=== PATIENT | male | born 1930 | race Caucasian/White ===

== ENCOUNTER 2021-05-21 06:32 | Inpatient (IN) | payer MEDICARE, OTHER ==
[2021-05-19 12:02] LABS: BASOPHILS # (AUTO) 0.1 (0.0-0.1); BASOPHILS % 0.6 % (0.0-1.0); EOSINOPHILS # (AUTO) 0.1 (0.0-0.4); EOSINOPHILS % 0.6 % (0.0-6.0); HEMATOCRIT 47.4 % (38.2-49.6); HEMOGLOBIN 15.5 g/dL (14.0-18.0); LYMPHOCYTES # (AUTO) 3.7 (1.0-3.2); LYMPHOCYTES % 27.3 % (18.0-39.1); MEAN CORPUSCULAR HEMOGLOBIN 32.5 pg (28-32); MEAN CORPUSCULAR HGB CONC 32.7 g/dL (31-35); MEAN CORPUSCULAR VOLUME 99.4 fL (81-99); MONOCYTES # (AUTO) 1.7 (0.2-0.8); MONOCYTES % 12.3 % (4.4-11.3); NEUTROPHILS # (AUTO) 7.9 (2.1-6.9); PLATELET COUNT 268 x10e3/uL (140-360); RED BLOOD COUNT 4.77 x10e6/uL (4.3-5.7); RED CELL DISTRIBUTION WIDTH 13.8 % (11.7-14.4)
[2021-05-19 12:18] LABS: ANION GAP 11.7 mmol/L (8-16); CALCIUM 9.2 mg/dL (8.4-10.2); CREATININE, SERUM 1.08 mg/dL (0.72-1.25); POTASSIUM 4.7 mmol/L (3.5-5.1)
[~2021-05-21] VITALS: Ht 172.7 cm; Wt 96.6 kg
[~2021-05-21 06:32] MED LIST: BACTRIM 400-801 EACH PO; FINASTERIDE5 MG PO; LEVOFLOXACIN250 MG PO; LEVOTHYROXINE50 MCG PO; PROPRANOLOL HCL40 MG PO
[2021-05-21] MEDS ORDERED: SODIUM CHLORIDE 0.9% 1000ML 1,000 ML ONE (07:12)
[2021-05-21] MEDS ORDERED: LEVOFLOXACIN 500MG/D5W 100ML 100 ML IV ONE (07:32)
[2021-05-21] MEDS ORDERED: GENTAMICIN 80MG/NS 100 ML 200 ML IV ONE (07:33)
[2021-05-21] MEDS ORDERED: B&O 60MG R/S 60 MG SUPP PR ONE (08:16)
[2021-05-21] MEDS ORDERED: IOPAMIDOL 300MG/ML 50ML INFUS..BTL IV ONE (08:16)
[2021-05-21] MEDS ORDERED: NEOSTIGMINE 1 MG/ML 10ML VIAL ONE (08:16)
[2021-05-21] MEDS ORDERED: BUPIVACAINE HCL 0.5% INJ 30 ML VIAL INJ ONE (08:16)
[2021-05-21] MEDS ORDERED: DIPHENHYDRAMINE HCL 25 MG CAP PO PRN ×2 (11:45→15:15)
[2021-05-21] MEDS ORDERED: ONDANSETRON HCL INJ 2MG/ML 2ML 2 MG/ML VIAL IV PRN ×2 (11:45→15:15)
[2021-05-21] MEDS ORDERED: D5.45%NS/KCL 20MEQ 1,000 ML IV SCH (11:45)
[2021-05-21 12:04] LABS: BASOPHILS # (AUTO) 0.1 (0.0-0.1); BASOPHILS % 0.7 % (0.0-1.0); EOSINOPHILS % 0.4 % (0.0-6.0); HEMATOCRIT 47.8 % (38.2-49.6); HEMOGLOBIN 15.6 g/dL (14.0-18.0); LYMPHOCYTES # (AUTO) 1.8 (1.0-3.2); LYMPHOCYTES % 21.4 % (18.0-39.1); MEAN CORPUSCULAR HEMOGLOBIN 32.6 pg (28-32); MEAN CORPUSCULAR HGB CONC 32.6 g/dL (31-35); MONOCYTES # (AUTO) 0.2 (0.2-0.8); MONOCYTES % 2.6 % (4.4-11.3); NEUTROPHILS # (AUTO) 6.3 (2.1-6.9); NEUTROPHILS % 72.8 % (38.7-80.0); PLATELET COUNT 251 x10e3/uL (140-360); RED BLOOD COUNT 4.78 x10e6/uL (4.3-5.7); RED CELL DISTRIBUTION WIDTH 13.8 % (11.7-14.4)
[2021-05-21 12:22] LABS: ANION GAP 12.1 mmol/L (8-16); CALCIUM 8.6 mg/dL (8.4-10.2); CREATININE, SERUM 0.96 mg/dL (0.72-1.25); POTASSIUM 5.1 mmol/L (3.5-5.1)
[2021-05-21 12:54] VITALS: BP 126/75
[2021-05-21] MEDS: PHENAZOPYRIDINE HCL 100 MG TAB PO PRN ×2 (14:23→21:35)
[2021-05-21 14:32] VITALS: BP 126/73
[2021-05-21] MEDS ORDERED: ACETAMINOPHEN 325 MG TAB PO PRN (15:15)
[2021-05-21] MEDS ORDERED: LIDOCAINE 4% PATCH TP PRN (15:15)
[2021-05-21] MEDS ORDERED: PROPRANOLOL HCL 40 MG TAB PO SCH (15:15)
[2021-05-21] MEDS ORDERED: BENZONATATE 100 MG CAP PO PRN (15:15)
[2021-05-21] MEDS ORDERED: POTASSIUM CHLORIDE 20 MEQ TAB CR PO PRN (15:15)
[2021-05-21] MEDS ORDERED: DEXTROSE 50% SYRINGE 50 ML IV PRN (15:15)
[2021-05-21] MEDS ORDERED: HYDRALAZINE HCL 20 MG/ML VIAL IV PRN (15:15)
[2021-05-21] MEDS ORDERED: DOCUSATE SODIUM 100 MG CAP PO PRN (15:15)
[2021-05-21] MEDS ORDERED: ALBUTEROL/IPRATROPIUM 3 ML NEB NEB PRN (15:15)
[2021-05-21 16:33] VITALS: BP 133/80
[2021-05-21] MEDS ORDERED: DOCUSATE SODIUM 100 MG CAP PO SCH (17:00)
[2021-05-21] MEDS ORDERED: SEVOFLURANE INHAL SOLN 250 ML PEN BTL ONE (17:32)
[2021-05-21] MEDS ORDERED: LIDOCAINE HCL 2% LOCAL INJ 5 ML SDV VIAL INJ ONE (17:32)
[2021-05-21] MEDS ORDERED: POVIDONE IODINE 0.05% 0.05 % ML PO ONE (17:32)
[2021-05-21] MEDS ORDERED: DEXAMETHASONE SOD PHOS INJ 4 MG/ML VIAL ONE (17:32)
[2021-05-21] MEDS ORDERED: EPHEDRINE SULFATE INJ 50 MG/ML VIAL ONE (17:32)
[2021-05-21] MEDS ORDERED: PROPOFOL IV EMULSION 10 MG/ML 20 ML VIAL ONE (17:32)
[2021-05-21] MEDS ORDERED: ONDANSETRON HCL INJ 2MG/ML 2ML 2 MG/ML VIAL ONE (17:32)
[2021-05-21] MEDS ORDERED: FENTANYL CITRATE/PF 100MCG/2 ML INJ ONE (17:46)
[2021-05-21] MEDS: DEXTROSE 5%/0.45% SOD CHL 1,000 ML IV SCH (17:47)
[2021-05-21] MEDS: DOCUSATE SODIUM 100 MG CAP PO SCH (20:13)
[2021-05-21] MEDS: ACETAMINOPHEN/CODEINE 300MG - 30MG TAB PO PRN (20:14)
[2021-05-21 20:15] VITALS: BP 133/80
[2021-05-21] MEDS ORDERED: MELATONIN 5 MG TABLET PO PRN (21:00)
[2021-05-22] VITALS (7 sets, daily range): BP systolic 98–135; BP diastolic 58–73
[2021-05-22 04:56] LABS: BASOPHILS % 0.2 % (0.0-1.0); HEMOGLOBIN 15.4 g/dL (14.0-18.0); LYMPHOCYTES # (AUTO) 3.4 (1.0-3.2); LYMPHOCYTES % 18.2 % (18.0-39.1); MEAN CORPUSCULAR HEMOGLOBIN 32.8 pg (28-32); MEAN CORPUSCULAR HGB CONC 33.5 g/dL (31-35); MEAN CORPUSCULAR VOLUME 97.9 fL (81-99); MONOCYTES # (AUTO) 1.7 (0.2-0.8); MONOCYTES % 9.3 % (4.4-11.3); NEUTROPHILS # (AUTO) 13.4 (2.1-6.9); NEUTROPHILS % 71.4 % (38.7-80.0); PLATELET COUNT 269 x10e3/uL (140-360); RED CELL DISTRIBUTION WIDTH 13.7 % (11.7-14.4)
[2021-05-22 05:09] LABS: ANION GAP 14.4 mmol/L (8-16); CALCIUM 8.3 mg/dL (8.4-10.2); CREATININE, SERUM 0.94 mg/dL (0.72-1.25); POTASSIUM 4.4 mmol/L (3.5-5.1)
[2021-05-22 05:37] LABS: MAGNESIUM 1.6 MG/DL (1.3-2.1); PHOSPHORUS 2.8 MG/DL (2.3-4.7)
[2021-05-22] MEDS: DEXTROSE 5%/0.45% SOD CHL 1,000 ML IV SCH ×3 (06:44→21:12)
[2021-05-22] MEDS: LEVOTHYROXINE SODIUM 50 MCG TAB PO SCH (06:44)
[2021-05-22] MEDS: PHENAZOPYRIDINE HCL 100 MG TAB PO PRN ×2 (06:46→20:17)
[2021-05-22] MEDS: PANTOPRAZOLE SOD 40 MG TABEC PO SCH (07:30)
[2021-05-22] MEDS: LEVOFLOXACIN 250MG/D5W 50ML 50 ML IV SCH (08:30)
[2021-05-22] MEDS: DOCUSATE SODIUM 100 MG CAP PO SCH ×2 (08:55→20:17)
[2021-05-22] MEDS: FINASTERIDE 5 MG TAB PO SCH (08:55)
[2021-05-22] MEDS: TRIMETHOPRIM/SULFAMETHOXAZOLE 160-800 MG TAB PO SCH ×2 (13:08→20:17)
[2021-05-22] MEDS: PROPRANOLOL HCL 40 MG TAB PO SCH (18:09)
[2021-05-22] MEDS: NEOMYCIN/POLYMYXIN/BACITRACIN 15 GM TUBE TOP SCH (20:17)
[2021-05-22] MEDS: B&O 60MG R/S 60 MG SUPP PR PRN (21:21)
[2021-05-23] VITALS (7 sets, daily range): BP systolic 111–147; BP diastolic 60–88
[2021-05-23 04:49] LABS: BASOPHILS # (AUTO) 0.1 (0.0-0.1); BASOPHILS % 0.4 % (0.0-1.0); EOSINOPHILS % 0.3 % (0.0-6.0); HEMATOCRIT 44.2 % (38.2-49.6); HEMOGLOBIN 14.9 g/dL (14.0-18.0); LYMPHOCYTES # (AUTO) 3.7 (1.0-3.2); LYMPHOCYTES % 25.1 % (18.0-39.1); MEAN CORPUSCULAR HGB CONC 33.7 g/dL (31-35); MONOCYTES % 13.6 % (4.4-11.3); NEUTROPHILS # (AUTO) 8.7 (2.1-6.9); NEUTROPHILS % 59.3 % (38.7-80.0); PLATELET COUNT 229 x10e3/uL (140-360); RED BLOOD COUNT 4.51 x10e6/uL (4.3-5.7); RED CELL DISTRIBUTION WIDTH 13.7 % (11.7-14.4)
[2021-05-23 05:12] LABS: ANION GAP 9.2 mmol/L (8-16); CALCIUM 8.3 mg/dL (8.4-10.2); POTASSIUM 4.2 mmol/L (3.5-5.1)
[2021-05-23] MEDS: LEVOTHYROXINE SODIUM 50 MCG TAB PO SCH (05:58)
[2021-05-23] MEDS: LEVOFLOXACIN 250MG/D5W 50ML 50 ML IV SCH (08:29)
[2021-05-23] MEDS: PANTOPRAZOLE SOD 40 MG TABEC PO SCH (08:30)
[2021-05-23] MEDS: DEXTROSE 5%/0.45% SOD CHL 1,000 ML IV SCH ×2 (08:30→22:18)
[2021-05-23] MEDS: DOCUSATE SODIUM 100 MG CAP PO SCH ×2 (08:30→21:19)
[2021-05-23] MEDS: TRIMETHOPRIM/SULFAMETHOXAZOLE 160-800 MG TAB PO SCH ×2 (08:30→21:19)
[2021-05-23] MEDS: NEOMYCIN/POLYMYXIN/BACITRACIN 15 GM TUBE TOP SCH ×2 (08:31→20:23)
[2021-05-23] MEDS: PROPRANOLOL HCL 40 MG TAB PO SCH ×2 (08:31→15:52)
[2021-05-23] MEDS: FINASTERIDE 5 MG TAB PO SCH (08:33)
[2021-05-23] MEDS ORDERED: ONDANSETRON HCL 4 MG ORAL DISINTEGRATING TAB PO PRN (09:45)
[2021-05-23] MEDS: PHENAZOPYRIDINE HCL 100 MG TAB PO PRN ×2 (13:15→19:05)
[2021-05-23] MEDS: ACETAMINOPHEN/CODEINE 300MG - 30MG TAB PO PRN (13:15)
[2021-05-23] MEDS: B&O 60MG R/S 60 MG SUPP PR PRN (21:20)
[2021-05-24] VITALS (7 sets, daily range): BP systolic 112–126; BP diastolic 69–95
[2021-05-24] MEDS: LEVOTHYROXINE SODIUM 50 MCG TAB PO SCH (05:51)
[2021-05-24 06:17] LABS: BASOPHILS # (AUTO) 0.1 (0.0-0.1); BASOPHILS % 0.5 % (0.0-1.0); EOSINOPHILS # (AUTO) 0.1 (0.0-0.4); EOSINOPHILS % 0.5 % (0.0-6.0); HEMATOCRIT 42.8 % (38.2-49.6); HEMOGLOBIN 14.3 g/dL (14.0-18.0); LYMPHOCYTES # (AUTO) 3.5 (1.0-3.2); LYMPHOCYTES % 28.1 % (18.0-39.1); MEAN CORPUSCULAR HEMOGLOBIN 32.9 pg (28-32); MEAN CORPUSCULAR HGB CONC 33.4 g/dL (31-35); MEAN CORPUSCULAR VOLUME 98.6 fL (81-99); MONOCYTES # (AUTO) 1.8 (0.2-0.8); MONOCYTES % 14.8 % (4.4-11.3); NEUTROPHILS # (AUTO) 6.7 (2.1-6.9); NEUTROPHILS % 54.4 % (38.7-80.0); PLATELET COUNT 223 x10e3/uL (140-360); RED BLOOD COUNT 4.34 x10e6/uL (4.3-5.7)
[2021-05-24 06:45] LABS: ANION GAP 10.2 mmol/L (8-16); CALCIUM 8.1 mg/dL (8.4-10.2); CREATININE, SERUM 1.01 mg/dL (0.72-1.25); POTASSIUM 4.2 mmol/L (3.5-5.1)
[2021-05-24] MEDS: TRIMETHOPRIM/SULFAMETHOXAZOLE 160-800 MG TAB PO SCH ×2 (08:11→21:40)
[2021-05-24] MEDS: DOCUSATE SODIUM 100 MG CAP PO SCH ×2 (08:11→21:40)
[2021-05-24] MEDS: LEVOFLOXACIN 250MG/D5W 50ML 50 ML IV SCH (08:11)
[2021-05-24] MEDS: FINASTERIDE 5 MG TAB PO SCH (08:11)
[2021-05-24] MEDS: PANTOPRAZOLE SOD 40 MG TABEC PO SCH (08:11)
[2021-05-24] MEDS: PROPRANOLOL HCL 40 MG TAB PO SCH ×2 (08:12→16:24)
[2021-05-24] MEDS: NEOMYCIN/POLYMYXIN/BACITRACIN 15 GM TUBE TOP SCH ×2 (09:03→21:41)
[2021-05-25 00:48] VITALS: BP 130/71
[2021-05-25 04:00] VITALS: BP 124/80
[2021-05-25] MEDS: LEVOTHYROXINE SODIUM 50 MCG TAB PO SCH (05:38)
[2021-05-25 05:48] LABS: BASOPHILS # (AUTO) 0.1 (0.0-0.1); BASOPHILS % 0.7 % (0.0-1.0); EOSINOPHILS # (AUTO) 0.1 (0.0-0.4); EOSINOPHILS % 0.6 % (0.0-6.0); HEMATOCRIT 43.5 % (38.2-49.6); HEMOGLOBIN 14.3 g/dL (14.0-18.0); LYMPHOCYTES % 28.4 % (18.0-39.1); MEAN CORPUSCULAR HEMOGLOBIN 32.6 pg (28-32); MEAN CORPUSCULAR HGB CONC 32.9 g/dL (31-35); MEAN CORPUSCULAR VOLUME 99.1 fL (81-99); MONOCYTES # (AUTO) 1.8 (0.2-0.8); MONOCYTES % 12.8 % (4.4-11.3); NEUTROPHILS # (AUTO) 7.7 (2.1-6.9); NEUTROPHILS % 55.4 % (38.7-80.0); PLATELET COUNT 224 x10e3/uL (140-360); RED BLOOD COUNT 4.39 x10e6/uL (4.3-5.7); RED CELL DISTRIBUTION WIDTH 14.1 % (11.7-14.4)
[2021-05-25 06:04] LABS: ANION GAP 12.7 mmol/L (8-16); CALCIUM 8.6 mg/dL (8.4-10.2); CREATININE, SERUM 1.08 mg/dL (0.72-1.25); POTASSIUM 4.7 mmol/L (3.5-5.1)
[2021-05-25 07:38] VITALS: BP 117/90
[2021-05-25 08:12] VITALS: BP 117/90
[2021-05-25] MEDS: LEVOFLOXACIN 250MG/D5W 50ML 50 ML IV SCH (08:16)
[2021-05-25] MEDS: PANTOPRAZOLE SOD 40 MG TABEC PO SCH (08:18)
[2021-05-25] MEDS: TRIMETHOPRIM/SULFAMETHOXAZOLE 160-800 MG TAB PO SCH (08:18)
[2021-05-25] MEDS: DOCUSATE SODIUM 100 MG CAP PO SCH (08:18)
[2021-05-25] MEDS: FINASTERIDE 5 MG TAB PO SCH (08:19)
[2021-05-25] MEDS: PROPRANOLOL HCL 40 MG TAB PO SCH (08:19)
[2021-05-25] MEDS: NEOMYCIN/POLYMYXIN/BACITRACIN 15 GM TUBE TOP SCH (09:04)
[2021-05-25 11:20] VITALS: BP 110/67
[2021-05-25] MEDS: DEXTROSE 5%/0.45% SOD CHL 1,000 ML IV SCH ×2 (13:20)
[2021-05-26] MEDS ORDERED: CLINDAMYCIN HC150 MG PO (13:54)
== END 2021-05-25 15:10 | disposition home or self-care (01) | DRG 707 ==
LOC: OR 06:32 → PACU V 11:35 → MED/SURG 12:41
PROVIDERS: ADMIT Internal Medicine; ATTEND Internal Medicine
PROC: BT141ZZ Fluoroscopy of Kidneys, Ureters and Bladder using Low Osmolar Contrast (ICD-10-PCS; 2021-05-21)
PROC: 0VTTXZZ Resection of Prepuce, External Approach (ICD-10-PCS; 2021-05-21)
PROC: 0V504ZZ Destruction of Prostate, Percutaneous Endoscopic Approach (ICD-10-PCS; principal; 2021-05-21 08:30)
PROC: 0VQS0ZZ Repair Penis, Open Approach (ICD-10-PCS; 2021-05-21 08:30)
PROC: 0T788ZZ Dilation of Bilateral Ureters, Via Natural or Artificial Opening Endoscopic (ICD-10-PCS; 2021-05-21 08:30)
DX: N40.1 Benign prostatic hyperplasia with lower urinary tract symptoms (principal); N13.8 Other obstructive and reflux uropathy; N39.0 Urinary tract infection, site not specified; N47.1 Phimosis; N48.89 Other specified disorders of penis; B95.7 Other staphylococcus as the cause of diseases classified elsewhere; G25.0 Essential tremor; I10 Essential (primary) hypertension; E03.9 Hypothyroidism, unspecified; R00.1 Bradycardia, unspecified; E66.9 Obesity, unspecified; Z68.32 Body mass index [BMI] 32.0-32.9, adult; Z20.822 Contact with and (suspected) exposure to COVID-19
CPT/HCPCS: 36415; 71046; 74420; 80048; 83735; 84100; 85025; 87071; 87075; 87186; 87205; 88304; 93005; C1758; J0360; J1100; J1580; J1956; J2001; J2405; J2710; J3010; J7030; U0002